=== PATIENT | female | born 1960 | race Caucasian/White ===

== ENCOUNTER → 2018-04-02 | Outpatient (CLI) | payer OTHER ==
[~2018-04-02] MED LIST: /DULO30CA OR; ASTELIN SPRAY; CETI10TA OR; COMBINATION CREAM TOP; EFFE75CA75 OR; FLON0.05; LIDO5DIS EX; MELOPOW PO; NORCO PO; SING10TA31 OR; TRAM50TA2 OR; ZANA4CAP OR
--- NOTE | 2018-04-08 10:29 | SLEEPCENT ---
DATE OF STUDY: 04/02/2018 ORDERING PROVIDER: Dr. Loera at the [facility] Nocturnal polysomnography was performed for the titration of pressure therapy in this patient with obstructive sleep apnea syndrome. For testing, a ResMed Quattro full face mask of medium size was used. 5 cm of water pressure were applied circuit, and the lights were extinguished. 8 hours and 50 minutes of data were reviewed. There were 423 minutes of sleep identified. Sleep latency was prolonged at 99 minutes. Rapid eye movement (REM) latency was prolonged at 300 minutes. Sleep architecture improved late in the study. There was one REM cycle noted. Overall sleep efficiency was 80.6%. The electrocardiogram showed a sinus rhythm with an average heart rate of 72 beats per minute. Electroencephalogram (EEG) showed reasonably normal waveforms for awake and sleep, but some coarsening of background but no focal events were identified. Persistence of respiratory events prompted an increase in pressure therapy despite optimal mask fit and minimal air leak. The patient was changed to a bilevel device and tolerated this well. Best sleep was seen on a bilevel device, inspiratory pressure 12 over expiratory pressure of 8, with which the patient slept through REM without respiratory event or oxygen desaturation in the right-sided posture. There was some activity in the limb leads. No trains of events were seen, and the limb movement arousal index was only 5.8. IMPRESSION: Obstructive sleep apnea syndrome (G47.33). RECOMMENDATION: Nightly use of pressure delivered via bilevel device, inspiratory 12 over expiratory of 8.
== END ==
LOC: M SLEEP 17:47
PROVIDERS: ATTEND Family Medicine
DX: G47.33 Obstructive sleep apnea (adult) (pediatric) (principal)

== ENCOUNTER → 2020-05-05 | Outpatient (CLI) | payer OTHER ==
[~2020-05-05] MED LIST changes: -/DULO30CA OR; +CYMB1CAP5 OR
--- NOTE | 2020-05-05 12:25 | REP ---
INDICATION: LEFT BREAST NODULE, SECOND LOOK. COMPARISON: MRI 04/03/2020, mammogram 03/06/2020. TECHNIQUE: Real-time sonographic evaluation of left breast performed. FINDINGS: Prior MRI showed abnormal enhancement diffusely in the region of 6 o'clock left breast. Today's ultrasound shows dense heterogeneous fibroglandular tissue with no suspicious sonographic abnormality. IMPRESSION: BIRADS/ACR category 4, suspicious. Geographic area of suspicious enhancement 6 o'clock left breast, with no sonographic correlate. However, there does appear to be asymmetric density in this region on the mammogram. Recommend stereotactic biopsy of the 6 o'clock region of the left breast, mid 3rd. RECOMMENDATION: Recommend stereotactic biopsy left breast as above. <Electronically signed by Peter Pfeiffer > 05/05/20 [id number]
== END ==
LOC: M RAD 11:42
PROVIDERS: ATTEND Family Medicine
DX: R92.8 Other abnormal and inconclusive findings on diagnostic imaging of breast (principal)

== ENCOUNTER → 2020-05-30 | Outpatient (CLI) | payer OTHER ==
--- NOTE | 2020-05-30 09:06 | REP ---
INDICATION: LT BREAST NODULE,POST STEREOTACTIC BIOPSY. Marker clip placement views. COMPARISON: Comparison mammography 06 March 2020. Comparison breast MRI study 03 April 2020. TECHNIQUE: Craniocaudal and mediolateral views of the breast are obtained. FINDINGS: Craniocaudal and mediolateral views of the left breast demonstrate a needle biopsy marker clip in the inferior and slightly medial aspect of the left breast where prior mammography from 06 March 2020 showed fibroglandular tissue markings which correspond to the area of enhancement seen on MRI study. IMPRESSION: Marker clip in good position. <Electronically signed by Colby Williamson > 05/30/20 [id number]
[2020-05-30 14:32] VITALS: BP 124/62
--- NOTE | 2020-05-30 15:39 | REP ---
INDICATION: LT BREAST NODULE. STEREOTACTIC BIOPSY. COMPARISON: None. TECHNIQUE: The procedure was performed under the general supervision of Dr. Williamson. Patient has a history of an asymmetric density in the 6 o'clock region of the left breast mid 3rd seen on a previous mammogram dated 03/06/2020 as well as a previous MRI performed on 04/03/2020. The risks and benefits of the procedure were explained to the patient and informed consent was obtained. A mediolateral approach was utilized. The were localized using stereotactic mammographic guidance. 1% Xylocaine was used as a local anesthetic. An 10 gauge, suction assisted Mammotome needle was inserted and 6 core biopsy samples were obtained. A marker clip (HydroMARK shape 3) was placed at the biopsy site. The patient tolerated the procedure well and there were no immediate complications. After the appropriate amount of monitored convalescence, the patient was discharged from the department. FINDINGS: None IMPRESSION: Stereotactic left breast biopsy with marker clip placement (HydroMARK shape 3). <Electronically signed by Abelardo Yanez > 05/30/20 1443 <Electronically signed by Colby Williamson > 05/30/20 1409
== END ==
LOC: M WHCPRO 06:44
PROVIDERS: ATTEND Family Medicine
DX: D05.12 Intraductal carcinoma in situ of left breast (principal)

== ENCOUNTER → 2020-07-27 | Outpatient (CLI) | payer OTHER ==
[~2020-07-27] MED LIST changes: +ATOR1TAB19 PO; +BACL10TA2 PO; +OXYC-517 PO
[2020-07-27 16:10] VITALS: BP 140/96
--- NOTE | 2020-07-27 16:16 | REP ---
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 Marker clip placement views. COMPARISON: Comparison marker clip placement views are obtained after the most recent prior positive stereotactic needle biopsy May 30, 2020. TECHNIQUE: Craniocaudal and mediolateral views of the left breast are obtained. FINDINGS: Today's needle biopsy marker clip is seen in good position, 4.7 cm posterior to the originally placed needle biopsy marker clip in the inferior and medial quadrant of the left breast. IMPRESSION: Marker clip in good position. No complication seen. <Electronically signed by Colby Williamson > 07/27/20 [id number]
--- NOTE | 2020-07-28 07:48 | REP ---
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 COMPARISON: None. TECHNIQUE: The procedure was performed under the general supervision of Dr. Williamson. The risks and benefits of the procedure were explained to the patient and informed consent was obtained. The patient has a history of ill-defined geographic, asymmetric heterogeneous enhancement in the 6 o'clock position of the left breast seen on a previous MRI dated 04/03/2020. A previous stereotactic biopsy was performed on 05/30/2020 in the more anterior aspect of this geographic region. The patient is referred today for biopsy of the more posterior aspect of this geographic region. A mediolateral approach was utilized. The area was localized using stereotactic mammographic guidance. 1% Xylocaine was used as a local anesthetic. A 10 gauge, suction assisted Mammotome needle was inserted and 6 core biopsy samples were obtained. Specimen a marker clip (HydroMARK shape 1) was placed at the biopsy site. The patient tolerated the procedure well and there were no immediate complications. After the appropriate amount of monitored convalescence, the patient was discharged from the department. FINDINGS: None IMPRESSION: Stereotactic left breast biopsy with marker clip placement. (HydroMARK shape 1) <Electronically signed by Abelardo Yanez > 07/27/20 0021 <Electronically signed by Colby Williamson > 07/28/20 [id number]
== END ==
LOC: M WHCPRO 06:58
PROVIDERS: ATTEND Surgery
DX: D05.12 Intraductal carcinoma in situ of left breast (principal)

== ENCOUNTER → 2023-10-10 | Outpatient (CLI) | payer OTHER ==
[~2023-10-10] MED LIST changes: +ATOR40TA75 PO; +AZEL0.1S NARES; +CALCTAB38 PO; +CETI10TA4 PO; +FLON1SPR NARES; +MELO15TA28 PO; +MIRT-88 PO; +MONT10TA97 PO; +PROHANCE 279.3MG/ML 15ML VIAL ONE; +VENL100T PO
== END ==
LOC: M PLAIMG 11:57
PROVIDERS: ATTEND Nurse Practitioner Family
DX: Z85.3 Personal history of malignant neoplasm of breast (principal)
CPT/HCPCS: A9576; C8908